=== PATIENT | male | born 1955 | race Caucasian/White ===

== ENCOUNTER 2018-10-13 01:25 | Emergency (ER) | payer MEDICARE ==
--- NOTE | 2018-10-13 02:41 | ER Document Report ---
ED Medical Screen (RME) - General Chief Complaint: Headache Stated Complaint: HEADACHE Time Seen by Provider: 10/13/18 02:37 Notes: 62-year-old male comes by EMS for waking up with a bad headache tonight at 2230, states he has a history of migraines but this is frontal, worse, and different than his usual. Found to be hypertensive with systolic in the 200s initially per EMS. States he also woke up in a cold sweat and felt somewhat short of breath. Denies chest pain. Denies fever or sick symptoms during the day. Reports some nausea but denies vomiting. Given Zofran by EMS. TRAVEL OUTSIDE OF THE [place] IN LAST 30 DAYS: No - Related Data Allergies/Adverse Reactions: fentanyl Allergy (Severe, Verified 07/13/16 11:17) n and v Past Medical History - Social History Chew tobacco use (# tins/day): No Frequency of alcohol use: None Drug Abuse: None - Past Medical History Cardiac Medical History: Reports: Hx Hypertension - on meds Denies: Hx Coronary Artery Disease, Hx Heart Attack Pulmonary Medical History: Denies: Hx Asthma, Hx Bronchitis, Hx COPD, Hx Pneumonia Neurological Medical History: Reports: Hx Seizures - no meds-last 01/31. Denies: Hx Cerebrovascular Accident Renal/ Medical History: Denies: Hx Peritoneal Dialysis Musculoskeltal Medical History: Denies Hx Arthritis - Immunizations Hx Diphtheria, Pertussis, Tetanus Vaccination: Yes Physical Exam - Vital signs Vitals: Temp Pulse Resp BP Pulse Ox 98.2 F 59 L 18 155/94 H 95 10/13/18 01:42 10/13/18 01:42 10/13/18 01:42 10/13/18 01:42 10/13/18 01:42 - General General appearance: Appears well In distress: None - Respiratory Respiratory status: No respiratory distress Breath sounds: Normal - Neurological Neuro grossly intact: Yes Cognition: Normal Orientation: AAOx4 [place] Coma Scale Verbal: Oriented [place] Coma Scale Motor: Obeys Commands Speech: Normal Cranial nerves: Normal Cerebellar coordination: Normal Motor strength normal: LUE, RUE, LLE, RLE Course - Vital Signs Vital signs: Temp Pulse Resp BP Pulse Ox 98.2 F 59 L 18 155/94 H 95 10/13/18 01:42 10/13/18 01:42 10/13/18 01:42 10/13/18 01:42 10/13/18 01:42
--- NOTE | 2018-10-13 03:02 | RADIOLOGY REPORT (SQ) ---
EXAM DESCRIPTION: XR CHEST 1 VIEW COMPLETED DATE/TME: 10/13/2018 02:37 CLINICAL HISTORY: 62 years, Male, shortness of breath COMPARISON: None. NUMBER OF VIEWS: 1 TECHNIQUE: Frontal view chest LIMITATIONS: None. FINDINGS: Heart size is normal. Lungs are clear. No pneumothorax IMPRESSION: Negative chest copyright 2010 [employer]- All Rights Reserved
--- NOTE | 2018-10-13 03:05 | RADIOLOGY REPORT (SQ) ---
EXAM DESCRIPTION: CT HEAD WITHOUT IV CONTRAST COMPLETED DATE/TME: 10/13/2018 02:37 CLINICAL HISTORY: 62 years, Male, sudden onset frontal headache, nausea, hypertensio COMPARISON: None. TECHNIQUE: 198 Images stored on PACS. All CT scanners at this facility use dose modulation, iterative reconstruction, and/or weight based dosing when appropriate to reduce radiation dose to as low as reasonably achievable (ALARA). [facility]: Dose Right [facility]: CareDose [facility]: Dose Right [facility]: Teradose 4D [facility]: [employer] LIMITATIONS: None. FINDINGS: The globes are intact. The paranasal sinuses and mastoid air cells are unremarkable. No displaced or depressed skull fracture. No intra or extra-axial hemorrhage. CT is limited for evaluation of acute infarct. No CT evidence for large or territorial acute infarct. No mass or midline shift. IMPRESSION: Negative for acute intracranial abnormality TECHNICAL DOCUMENTATION: Quality ID # [id number]: Final reports with documentation of one or more dose reduction techniques (e.g., Automated exposure control, adjustment of the mA and/or kV according to patient size, use of iterative reconstruction technique) copyright 2011 [employer]- All Rights Reserved
[2018-10-13 03:06] LABS: ABSOLUTE EOSINOPHILS # (AUTO) 0.2 10^3/uL (0.0-0.6); ABSOLUTE LYMPHOCYTES (AUTO) 1.6 10^3/uL (0.5-4.7); ABSOLUTE MONOCYTES (AUTO) 0.4 10^3/uL (0.1-1.4); ABSOLUTE NEUT (AUTO) 3.7 10^3/uL (1.7-8.2); BASOPHILS % (AUTO) 0.7 % (0-2); EOSINOPHILS % (AUTO) 3.2 % (0-6); HEMATOCRIT 43.8 % (37.9-51.0); HEMOGLOBIN 15.4 g/dL (13.5-17.0); LYMPHOCYTES % (AUTO) 26.7 % (13-45); MEAN CORPUSCULAR HEMOGLOBIN 31.4 pg (27.0-33.4); MEAN CORPUSCULAR HGB CONC 35.3 g/dL (32.0-36.0); MEAN CORPUSCULAR VOLUME 89 fl (80-97); MONOCYTES % (AUTO) 6.6 % (3-13); PLATELET COUNT 137 10^3/uL (150-450); RED BLOOD COUNT 4.91 10^6/uL (4.35-5.55); SEGMENTED NEUTROPHILS % (AUTO) 62.8 % (42-78); TOTAL CELLS COUNTED % (AUTO) 100 %
[2018-10-13 03:27] LABS: ANION GAP 8 (5-19); BLOOD UREA NITROGEN 8 mg/dL (7-20); CALCIUM 9.1 mg/dL (8.4-10.2); CARBON DIOXIDE 32 mmol/L (22-30); CHLORIDE 100 mmol/L (98-107); GLUCOSE 116 mg/dL (75-110); POTASSIUM 4.2 mmol/L (3.6-5.0); SODIUM 140.1 mmol/L (137-145)
[2018-10-13] MEDS ORDERED: ONDANSETRON HCL INJ/PF 4 MG/2 ML SDV IV ONE (04:26)
[2018-10-13] MEDS ORDERED: MORPHINE SULFATE 10 MG/ML INJ IV ONE (04:26)
--- NOTE | 2018-10-13 05:35 | ER Document Report ---
ED General - General Chief Complaint: Headache Stated Complaint: HEADACHE Time Seen by Provider: 10/13/18 02:37 Notes: Patient is a 62-year-old male comes that comes by EMS for waking up with a bad headache tonight at 2230, states he has a history of migraines but this is frontal, worse, and different than his usual. Found to be hypertensive with systolic in the 200s initially per EMS. States he also woke up in a cold sweat and felt somewhat short of breath. Denies chest pain. Denies fever or sick symptoms during the day. Reports some nausea but denies vomiting. Given Zofran by EMS. He states that he gets sometimes severe headaches, is even prescribed oxycodone and morphine to take intermittently. TRAVEL OUTSIDE OF THE [place] IN LAST 30 DAYS: No - Related Data Allergies/Adverse Reactions: fentanyl Allergy (Severe, Verified 07/13/16 11:17) n and v Past Medical History - General Information source: Patient - Social History Smoking Status: Current Every Day Smoker Chew tobacco use (# tins/day): No Frequency of alcohol use: None Drug Abuse: None Lives with: Family Family History: Reviewed & Not Pertinent Patient has suicidal ideation: No Patient has homicidal ideation: No - Past Medical History Cardiac Medical History: Reports: Hx Hypertension - on meds Denies: Hx Coronary Artery Disease, Hx Heart Attack Pulmonary Medical History: Denies: Hx Asthma, Hx Bronchitis, Hx COPD, Hx Pneumonia Neurological Medical History: Reports: Hx Seizures - no meds-last 01/31. Denies: Hx Cerebrovascular Accident Renal/ Medical History: Denies: Hx Peritoneal Dialysis Musculoskeletal Medical History: Denies Hx Arthritis Past Surgical History: Reports: Other - Stent placed in carotid after injury - Immunizations Hx Diphtheria, Pertussis, Tetanus Vaccination: Yes Review of Systems - Review of Systems Constitutional: See HPI EENT: No symptoms reported Cardiovascular: See HPI Respiratory: See HPI Gastrointestinal: No symptoms reported Genitourinary: No symptoms reported Male Genitourinary: No symptoms reported Musculoskeletal: No symptoms reported Skin: No symptoms reported Hematologic/Lymphatic: No symptoms reported Neurological/Psychological: See HPI Physical Exam - Vital signs Vitals: Temp Pulse Resp BP Pulse Ox 98.2 F 59 L 18 155/94 H 95 10/13/18 01:42 10/13/18 01:42 10/13/18 01:42 10/13/18 01:42 10/13/18 01:42 - Notes Notes: GENERAL: Alert, interacts well. No acute distress. HEAD: Normocephalic, atraumatic. EYES: Pupils equal, round, and reactive to light. Extraocular movements intact. ENT: Oral mucosa moist, tongue midline. Oropharynx unremarkable. Airway patent. Nares patent, no nasal septal hematoma, TM's intact. NECK: Full range of motion. Supple. Trachea midline. LUNGS: Clear to auscultation bilaterally, no wheezes, rales, or rhonchi. No respiratory distress. HEART: Borderline bradycardia. No murmur ABDOMEN: Soft, non-tender. Non-distended. Bowel sounds present in all 4 quadrants. GENITOURINARY: Deferred EXTREMITIES: Moves all 4 extremities spontaneously. No edema, normal radial and dorsalis pedis pulses bilaterally. No cyanosis. BACK: no cervical, thoracic, lumbar midline tenderness. No saddle anesthesia, normal distal neurovascular exam. NEUROLOGICAL: Alert and oriented x3. Normal speech. [cranial nerves II through XII grossly intact]. PSYCH: Normal affect, normal mood. SKIN: Warm, dry, normal turgor. No rashes or lesions noted. Course - Re-evaluation Re-evalutation: Patient has no neurological deficit on initial evaluation, he does not appear to be in any distress. He is describing a frontal headache. CT was performed within 6 hours of symptom onset, this was negative. Low suspicion of subarachnoid hemorrhage as result. On reevaluation patient states his headache is actually much improved, he only received Zofran by EMS. He continues to be very well-appearing. EKG showing sinus rhythm at a rate of 57, right bundle branch block present, no T wave inversions or ST segment changes in consecutive leads. There is no significant change from prior EKG. Chest x-ray unremarkable. Initial troponin is negative. CBC, chemistry unremarkable. I discussed with patient. He states he would like to be treated for the "rest of the headache" and then he is hoping to go home. He states he feels much better than when symptoms started initially. Troponin will be cycled because of patient's diaphoresis and shortness of breath at onset (although there was no chest pain and patient states he frequently feels this way and he has had these intermittent symptoms for a while). After this patient will follow up with his primary care provider. Patient states great satisfaction with this plan. I discussed return precautions in detail with patient, patient and significant other state understanding and agreement Evaluated patient much more, he states headache is completely gone, he feels excellent, asking to go home. - Vital Signs Vital signs: Temp Pulse Resp BP Pulse Ox 98.2 F 59 L 18 155/94 H 95 10/13/18 01:42 10/13/18 01:42 10/13/18 01:42 10/13/18 01:42 10/13/18 01:42 - Laboratory Result Diagrams: 10/13/18 02:52 10/13/18 02:52 Laboratory results interpreted by me: 10/13/18 10/13/18 02:52 02:52 Plt Count 137 L Carbon Dioxide 32 H Glucose 116 H Discharge - Discharge Clinical Impression: Shortness of breath Headache Qualifiers: Headache type: unspecified Headache chronicity pattern: acute headache Intractability: not intractable Qualified Code(s): R51 - Headache Condition: Stable Disposition: HOME, SELF-CARE Additional Instructions: Your workup at this time is reassuring. I recommend that you keep blood pressure logs, log 1-2 blood pressure readings a day for about a week and then follow-up with your primary care provider for additional management of your blood pressure treatment. Follow-up with your neurologist additionally. Return if you worsen including returned or severe headache, vomiting, chest pain, passing out, or any other concerning or worsening symptoms.
[2018-10-13 06:18] VITALS: BP 148/96
--- NOTE | 2018-10-13 09:07 | EKG REPORT ---
SEVERITY:- ABNORMAL ECG - SINUS RHYTHM RIGHT BUNDLE BRANCH BLOCK : Confirmed by: Inge Rush MD 13-Oct-2018 09:07:02
== END 2018-10-13 06:23 | disposition home or self-care (01) ==
LOC: ER 01:25
DX: R51 Headache (principal); R06.02 Shortness of breath; R61 Generalized hyperhidrosis; R11.0 Nausea; I10 Essential (primary) hypertension; F17.200 Nicotine dependence, unspecified, uncomplicated; Z86.69 Personal history of other diseases of the nervous system and sense organs; Z88.5 Allergy status to narcotic agent
CPT/HCPCS: 93005; 99285; 96374; 96375; 36415; 85025; 80048; 84484; 71045; 70450; 93010; J2270; J2405